=== PATIENT | male | born 1980 | race Caucasian/White ===

== ENCOUNTER → 2016-12-30 | Outpatient (CLI) | payer OTHER ==
[2017-01-01 15:08] LABS: HCV Qualitative Result DETECTED (Not detected)
== END | disposition home or self-care (01) ==
LOC: LABWHC1 13:35
DX: B18.2 Chronic viral hepatitis C (principal)
CPT/HCPCS: 36415; 87522; 87902

== ENCOUNTER → 2019-06-09 | Outpatient (CLI) | payer OTHER ==
--- NOTE | 2019-06-14 22:49 | HM ---
HOLTER MONITOR REPORT 24 HOUR DCG: There was no diary provided. Predominant rhythm appears to be sinus with a heart rate ranging from 48 to 147 beats per minute with average heart rate of 81 beats per minute. Rare isolated PACs and PVCs were noted. There was no evidence of any significant bradyarrhythmia. The patient had a heart rate of 147 beats per minute at 10:05 p.m., but it appears to be sinus tachycardia. No diary was provided, and therefore I cannot correlate with any activity. FINAL IMPRESSION: Predominant rhythm is sinus with average heart rate of 81 beats per minute. Sinus tachycardia was noted. Rare PVCs were noted. No significant SVT, VT or bradyarrhythmia was detected. MMODL / IJN: [id number] /
== END | disposition home or self-care (01) ==
LOC: RADECHMAIN 12:30
PROVIDERS: ATTEND Nurse Practitioner Family
DX: I49.3 Ventricular premature depolarization (principal)
CPT/HCPCS: 93225; 93226